=== PATIENT | female | born 1980 | race Caucasian/White ===

== ENCOUNTER 2016-10-08 15:41 | Outpatient (CLI) | payer OTHER ==
[2016-10-08 16:55] LABS: BASOPHILS # (AUTO) 0.1 K/uL (0-0.2); BASOPHILS % (AUTO) 0.5 % (0.0-3.0); EOSINOPHILS # (AUTO) 0.2 K/ul (0.0-0.7); EOSINOPHILS % (AUTO) 1.9 % (0.0-7.0); HEMATOCRIT 38.1 % (37.0-47.0); HEMOGLOBIN 12.2 g/dl (12.0-16.0); IMMATURE GRANULOCYTE % (AUTO) 0.8 % (0.0-5.0); LYMPHOCYTES % (AUTO) 25.5 (10.0-50.0); MEAN CORPUSCULAR VOLUME 78.1 fl (81.0-99.0); MONOCYTES # (AUTO) 0.6 K/uL (0.4-2.0); MONOCYTES % (AUTO) 4.6 (0-10); NEUTROPHILS # (AUTO) 7.9 K/ul (2.0-6.9); NEUTROPHILS % (AUTO) 66.7; PLATELET COUNT 262 10^3/uL (140-440); RED BLOOD COUNT 4.88 10^6/ul (4.20-5.40); WHITE BLOOD COUNT 11.87 K/ul (4.6-10.2)
[2016-10-08 17:49] LABS: ALBUMIN 3.3 g/dL (3.4-5.0); ALBUMIN/GLOBULIN RATIO 0.75; ANION GAP 11.4; BILIRUBIN,TOTAL 0.38 mg/dL (0.00-1.20); BUN/CREATININE RATIO 13.15; CALCIUM 9.4 mg/dL (8.2-10.2); CHOL/HDL RATIO 5.3 (4.5-5.5); CREATININE 0.76 mg/dL (0.60-1.30); POTASSIUM 4.4 mmol/L (3.5-5.10); TOTAL PROTEIN 7.7 g/dL (6.4-8.2)
== END 2016-10-08 15:42 | disposition home or self-care (01) ==
LOC: LAB 15:41
PROVIDERS: ATTEND Nurse Practitioner Family
DX: E11.9 Type 2 diabetes mellitus without complications (principal); I10 Essential (primary) hypertension; E78.5 Hyperlipidemia, unspecified
CPT/HCPCS: 36415; 80053; 80061; 83036; 85025

== ENCOUNTER 2016-11-23 13:53 | Outpatient (CLI) ==
[2016-11-23 15:23] VITALS: BMI 69.2
== END 2016-11-23 13:54 | disposition home or self-care (01) ==
LOC: DIETCN 13:53
PROVIDERS: ATTEND Nurse Practitioner Family
DX: E11.9 Type 2 diabetes mellitus without complications (principal); E66.01 Morbid (severe) obesity due to excess calories
CPT/HCPCS: 97802

== ENCOUNTER 2017-01-06 11:59 | Outpatient (CLI) ==
[2017-01-06 13:19] LABS: BASOPHILS # (AUTO) 0.1 K/uL (0-0.2); BASOPHILS % (AUTO) 0.4 % (0.0-3.0); EOSINOPHILS # (AUTO) 0.2 K/ul (0.0-0.7); EOSINOPHILS % (AUTO) 1.8 % (0.0-7.0); HEMATOCRIT 36.8 % (37.0-47.0); HEMOGLOBIN 11.7 g/dl (12.0-16.0); IMMATURE GRANULOCYTE % (AUTO) 1.1 % (0.0-5.0); LYMPHOCYTES % (AUTO) 25.2 (10.0-50.0); MEAN CORPUSCULAR HEMOGLOBIN 25.4 pg (27.0-31.0); MEAN CORPUSCULAR HGB CONC 31.8 (31.8-35.4); MEAN CORPUSCULAR VOLUME 79.8 fl (81.0-99.0); MONOCYTES # (AUTO) 0.7 K/uL (0.4-2.0); MONOCYTES % (AUTO) 5.7 (0-10); NEUTROPHILS # (AUTO) 7.9 K/ul (2.0-6.9); NEUTROPHILS % (AUTO) 65.8; PLATELET COUNT 293 10^3/uL (140-440); RED BLOOD COUNT 4.61 10^6/ul (4.20-5.40); WHITE BLOOD COUNT 11.99 K/ul (4.6-10.2)
[2017-01-06 13:55] LABS: ALBUMIN 3.3 g/dL (3.4-5.0); ALBUMIN/GLOBULIN RATIO 0.77; ANION GAP 14.4; BILIRUBIN,TOTAL 0.26 mg/dL (0.00-1.20); BUN/CREATININE RATIO 15.58; CREATININE 0.77 mg/dL (0.60-1.30); POTASSIUM 4.4 mmol/L (3.5-5.10); TOTAL PROTEIN 7.6 g/dL (6.4-8.2)
== END 2017-01-06 12:00 | disposition home or self-care (01) ==
LOC: LAB 11:59
PROVIDERS: ATTEND Nurse Practitioner Family
DX: E11.9 Type 2 diabetes mellitus without complications (principal); I10 Essential (primary) hypertension; D50.9 Iron deficiency anemia, unspecified; E66.01 Morbid (severe) obesity due to excess calories; F32.9 Major depressive disorder, single episode, unspecified
CPT/HCPCS: 36415; 80053; 83036; 85025

== ENCOUNTER 2017-01-10 09:32 | Outpatient (CLI) | payer OTHER ==
[2017-01-10 13:00] LABS: H. PYLORI ANTIBODY NEGATIVE (NEGATIVE); H.PYLORI INTERNAL QC INTERNAL QC VALID
== END 2017-01-10 09:33 | disposition home or self-care (01) ==
LOC: LAB 09:32
PROVIDERS: ATTEND Nurse Practitioner Family
DX: R10.811 Right upper quadrant abdominal tenderness (principal); R10.9 Unspecified abdominal pain; R11.0 Nausea; I10 Essential (primary) hypertension
CPT/HCPCS: 36415; 80053; 80061; 82150; 83036; 83690; 84443; 86677

== ENCOUNTER 2017-01-11 07:33 | Outpatient (CLI) | payer OTHER ==
--- NOTE | 2017-01-11 09:27 | CT ---
EXAM: CT of the abdomen pelvis with contrast History: Right-sided abdominal pain and nausea. Comparison: CT abdomen pelvis 03/28/2014 Technique: Multiplanar CT images through the abdomen pelvis were obtained following administration of IV contrast Findings: Lung bases are free of consolidation. No acute osseous abnormalities. Scoliosis. Enlarged fatty liver. Cholecystectomy clips. Spleen is unremarkable. Pancreas is within normal li mits. Adrenal glands are unremarkable. No renal masses. No change in the moderate sized fat-conta ining umbilical hernia. Large cystic pelvic mass measuring 11 cm x 11 cm is slightly increased in s ize from the 2014 examination. Intrauterine device seen in place. Bladder wall is not thickened. No perirectal inflammation. The appendix is not dilated or inflamed. No bowel obstruction. No free air and no ascites Impression: 1. Large pelvic cystic mass has slightly increased in size compared to the 2014 study. This could be benign or malignant and further evaluation recommended. 2. Enlarged fatty liver. 3. No change in the fat containing umbilical hernia.
== END 2017-01-11 07:34 | disposition home or self-care (01) ==
LOC: RAD 07:33
PROVIDERS: ATTEND Nurse Practitioner Family
DX: R10.811 Right upper quadrant abdominal tenderness (principal); R10.9 Unspecified abdominal pain; R11.0 Nausea

== ENCOUNTER 2017-04-29 12:52 | Outpatient (CLI) ==
[2017-04-29 13:10] LABS: BASOPHILS % (AUTO) 0.3 % (0.0-3.0); EOSINOPHILS # (AUTO) 0.4 K/ul (0.0-0.7); EOSINOPHILS % (AUTO) 3.1 % (0.0-7.0); HEMOGLOBIN 10.7 g/dl (12.0-16.0); IMMATURE GRANULOCYTE % (AUTO) 0.8 % (0.0-5.0); LYMPHOCYTES # (AUTO) 2.4 K/uL (0.60-3.4); MEAN CORPUSCULAR HEMOGLOBIN 24.9 pg (27.0-31.0); MEAN CORPUSCULAR HGB CONC 31.5 (31.8-35.4); MEAN CORPUSCULAR VOLUME 79.1 fl (81.0-99.0); MONOCYTES # (AUTO) 0.6 K/uL (0.4-2.0); NEUTROPHILS # (AUTO) 8.5 K/ul (2.0-6.9); NEUTROPHILS % (AUTO) 70.8; PLATELET COUNT 333 10^3/uL (140-440); WHITE BLOOD COUNT 11.91 K/ul (4.6-10.2)
[2017-04-29 13:57] LABS: ALBUMIN 3.2 g/dL (3.4-5.0); ALBUMIN/GLOBULIN RATIO 0.7; ANION GAP 16.9; BILIRUBIN,TOTAL 0.21 mg/dL (0.00-1.20); BUN/CREATININE RATIO 25.55; CALCIUM 10.3 mg/dL (8.2-10.2); CHOL/HDL RATIO 5.1 (4.5-5.5); CREATININE 0.9 mg/dL (0.60-1.30); POTASSIUM 4.9 mmol/L (3.5-5.10); TOTAL PROTEIN 7.8 g/dL (6.4-8.2)
== END 2017-04-29 12:53 | disposition home or self-care (01) ==
LOC: LAB 12:52
PROVIDERS: ATTEND Nurse Practitioner Family
DX: I10 Essential (primary) hypertension (principal); E11.9 Type 2 diabetes mellitus without complications; E55.9 Vitamin D deficiency, unspecified; E78.1 Pure hyperglyceridemia
CPT/HCPCS: 36415; 80053; 80061; 82306; 83036; 85025

== ENCOUNTER 2017-08-11 14:17 | Outpatient (CLI) | END 2017-08-11 14:18 | disposition home or self-care (01) | LOC: LAB 14:17 | PROVIDERS: ATTEND Nurse Practitioner Family | DX: E78.5 Hyperlipidemia, unspecified (principal); E11.9 Type 2 diabetes mellitus without complications; I10 Essential (primary) hypertension; E78.1 Pure hyperglyceridemia; D50.9 Iron deficiency anemia, unspecified | CPT/HCPCS: 36415; 80053; 80061; 83036; 85025 ==

== ENCOUNTER 2017-08-15 16:50 | Outpatient (CLI) | END 2017-08-15 16:51 | disposition home or self-care (01) | LOC: LAB 16:50 | PROVIDERS: ATTEND Nurse Practitioner Family | DX: S31.105A Unspecified open wound of abdominal wall, periumbilic region without penetration into peritoneal cavity, initial encounter (principal) | CPT/HCPCS: 87070 ==

== ENCOUNTER 2017-11-07 14:19 | Outpatient (CLI) | END 2017-11-07 14:20 | disposition home or self-care (01) | LOC: RHC-LAB 14:19 | PROVIDERS: ATTEND Nurse Practitioner Family | DX: R05 Cough (principal) | CPT/HCPCS: 87651; 87804 ==

== ENCOUNTER 2018-01-13 12:19 | Outpatient (CLI) | END 2018-01-13 12:20 | disposition home or self-care (01) | LOC: RHC-LAB 12:19 | PROVIDERS: ATTEND Nurse Practitioner Family | DX: E78.5 Hyperlipidemia, unspecified (principal); E78.1 Pure hyperglyceridemia; I10 Essential (primary) hypertension; E11.9 Type 2 diabetes mellitus without complications; D50.9 Iron deficiency anemia, unspecified; E66.9 Obesity, unspecified | CPT/HCPCS: 36415; 80053; 80061; 83036; 85025 ==